=== PATIENT | female | born 1985 ===

== ENCOUNTER 2018-08-10 16:55 | Emergency (ER) | payer OTHER ==
[2018-08-10 17:16] VITALS: RESP 18; O2SAT 98
--- NOTE | 2018-08-10 17:47 | C.PDOC ---
History Of Present Illness 32 y/o female presents to the ED with complaints of cough, runny nose, sinus congestion, and chest congestion for 1 week. Cough is non-productive. Patient denies any fever, chills, nausea, or vomiting. Denies hx of asthma or smoking. She also complaints of some chest pain with coughing. No throat pain. Time Seen by Provider: 08/10/18 17:16 Chief Complaint (Nursing): Cough, Cold, Congestion History Per: Patient History/Exam Limitations: no limitations Onset/Duration Of Symptoms: Days Current Symptoms Are (Timing): Still Present Past Medical History Reviewed: Historical Data, Nursing Documentation, Vital Signs Vital Signs: Last Vital Signs Temp 98.4 F 08/10/18 17:14 Pulse 86 08/10/18 17:14 Resp 18 08/10/18 17:14 BP 121/79 08/10/18 17:14 Pulse Ox 98 08/10/18 17:14 Surgical History: No Surg Hx Family History: States: No Known Family Hx - Social History Hx Tobacco Use: No Hx Alcohol Use: No Hx Substance Use: No - Immunization History Hx Tetanus Toxoid Vaccination: No Hx Influenza Vaccination: No Hx Pneumococcal Vaccination: No Review Of Systems Except As Marked, All Systems Reviewed And Found Negative. Constitutional: Negative for: Fever, Chills ENT: Positive for: Nose Discharge, Nose Congestion, Other (Chest congestion) Cardiovascular: Positive for: Chest Pain (when coughing) Respiratory: Positive for: Cough. Negative for: Shortness of Breath, Sputum, Wheezing Gastrointestinal: Negative for: Nausea, Vomiting Musculoskeletal: Negative for: Back Pain Skin: Negative for: Rash Neurological: Negative for: Weakness, Headache Physical Exam - Physical Exam Appears: Non-toxic, No Acute Distress Skin: Normal Color, Warm, Dry Head: Atraumatic, Normacephalic Eye(s): bilateral: Normal Inspection, PERRL, EOMI Nose: Normal, No Discharge Oral Mucosa: Moist Throat: Normal, No Erythema, No Exudate Neck: Normal ROM Chest: Symmetrical, No Deformity, No Tenderness Cardiovascular: Rhythm Regular, No Murmur Respiratory: Normal Breath Sounds, No Accessory Muscle Use, No Rales, No Rhonchi, No Wheezing, Other (NARD) Extremity: Bilateral: Atraumatic, Normal Color And Temperature, Normal ROM Pulses: Left Radial: Normal, Right Radial: Normal Neurological/Psych: Oriented x3, Normal Speech, Other (No focal deficits) ED Course And Treatment O2 Sat by Pulse Oximetry: 98 (RA) Pulse Ox Interpretation: Normal - Radiology CXR: Interpreted by Me CXR Interpretation: Yes: No Acute Disease Medical Decision Making Medical Decision Making: Impression: Cough, r/o PNA Plan: --Chest X-Ray --EKG Patient informed of results. Plan is to discharge patient home. Counseled regarding dx of viral illness. Advised symptomatic treatment and follow up with PMD. Disposition Counseled Patient/Family Regarding: Studies Performed, Diagnosis, Need For Followup, Rx Given - Disposition Referrals: [facility] [Outside] [facility] [Outside] Disposition: HOME/ ROUTINE Disposition Time: 17:46 Condition: GOOD Prescriptions: Acetaminophen [Tylenol Extra Strength] 2 tab PO Q6 #30 tablet Benzonatate [Tessalon Perles] 200 mg PO TID PRN #15 sgl PRN Reason: Cough Pseudoephedrine HCl [Sudafed 24 Hour] 240 mg PO DAILY PRN #1 unit PRN Reason: Sinus Symptoms Instructions: Upper Respiratory Infection (ED) Forms: Gen Discharge Inst South Korean, [facility] (Danish), Work Excuse Print Language: SAO TOMEAN - Clinical Impression Clinical Impression: Upper respiratory infection - Scribe Statement The provider has reviewed the documentation as recorded by the Benjamin Reynolds Provider Attestation: All medical record entries made by the Scribe were at my direction and personally dictated by me. I have reviewed the chart and agree that the record accurately reflects my personal performance of the history, physical exam, medical decision making, and the department course for this patient. I have also personally directed, reviewed, and agree with the discharge instructions and d isposition.
[2018-08-10 17:48] VITALS: BP 110/74; PULSE 78; TEMP 98.5
--- NOTE | 2018-08-10 17:48 | RAD ---
Date of service: 08/10/2018 HISTORY: COUGH COMPARISON: No prior. TECHNIQUE: Chest PA and lateral FINDINGS: LUNGS: No acute consolidation.. Small elliptical shaped nodular density left lateral lower lung field which overlies the left anterior 6 rib possibly representing vessel on end artifact however small calcified granuloma not excluded. PLEURA: No significant pleural effusion identified. No pneumothorax apparent. CARDIOVASCULAR: No aortic atherosclerotic calcification present. Normal cardiac size. No pulmonary vascular congestion. OSSEOUS STRUCTURES: No significant abnormalities. VISUALIZED UPPER ABDOMEN: Normal. OTHER FINDINGS: None. IMPRESSION: No acute consolidation.. Small elliptical shaped nodular density left lateral lower lung field which overlies the left anterior 6 rib possibly representing a small vessel on end artifact or small calcified granuloma.
--- NOTE | 2018-08-11 10:53 | CARD ---
APPROVED REPORT Date of service: 08/10/2018 EKG Measurement Heart [id number] <Conclusion> Normal sinus rhythm Normal ECG
== END 2018-08-10 18:08 | disposition home or self-care (01) ==
LOC: C.ER 16:55
DX: J06.9 Acute upper respiratory infection, unspecified (principal)

== ENCOUNTER 2018-09-23 21:06 | Emergency (ER) | payer OTHER ==
[2018-09-23 21:17] VITALS: TEMP 98.2
[2018-09-23] MEDS ORDERED: Tdap Vaccine 0.5 ml Vial (10-64 yrs) IM ONE ×3 (21:23→21:45)
--- NOTE | 2018-09-23 21:23 | C.PDOC ---
History Of Present Illness Patient is a 32 year old female who presents to the ED after sustaining a fall and hitting her head while ice skating. Patient presents with a hematoma to the forehead. Patient denies any LOC, dizziness, palpitations, visual changes, headache, CP, or SOB. - HPI Time Seen by Provider: 09/23/18 21:20 Chief Complaint (Nursing): Trauma History Per: Patient History/Exam Limitations: no limitations Onset/Duration Of Symptoms: Hrs Recent travel outside of the [place]: No Additional History Per: Patient - Fall Fall:Prior To Injury: Lost Balance Past Medical History Reviewed: Historical Data, Nursing Documentation, Vital Signs Vital Signs: Last Vital Signs Temp 98.2 F 09/23/18 21:13 Pulse 97 H 09/23/18 21:13 Resp 16 09/23/18 21:13 BP 117/77 09/23/18 21:13 Pulse Ox 98 09/23/18 21:13 - Medical History PMH: No Chronic Diseases Surgical History: No Surg Hx Family History: States: No Known Family Hx - Social History Hx Tobacco Use: No Hx Alcohol Use: No Hx Substance Use: No - Immunization History Hx Tetanus Toxoid Vaccination: No Hx Influenza Vaccination: No Hx Pneumococcal Vaccination: No Review Of Systems Eyes: Negative for: Vision Change Cardiovascular: Negative for: Chest Pain, Palpitations Respiratory: Negative for: Shortness of Breath Neurological: Negative for: Headache, Dizziness, Other (LOC) Physical Exam - Physical Exam Appears: Non-toxic, No Acute Distress Head: Normacephalic, Other (2cm hematoma to forehead ) Nose: Other (linear abrasion to bridge of nose ) Oral Mucosa: Moist Neck: Normal ROM, Supple Chest: Symmetrical, No Deformity Cardiovascular: Rhythm Regular, No Murmur Respiratory: Normal Breath Sounds, No Rales, No Rhonchi, No Wheezing Gastrointestinal/Abdominal: Soft, No Tenderness, No Guarding, No Rebound Back: No Vertebral Tenderness (cervical, thoracic, lumbar tenderness of step offs ) Extremity: Normal ROM Neurological/Psych: Oriented x3, Normal Speech, Normal Cognition ED Course And Treatment O2 Sat by Pulse Oximetry: 98 (on RA) Pulse Ox Interpretation: Normal - CT Scan/US CAT Head Other Rad Studies (CT/US): Read By Radiologist, Radiology Report Reviewed CT/US Interpretation: IMPRESSION: No acute intracranial abnormality. Large left forehead hematoma. CAT Maxillofacial Other Rad Studies (CT/US): Read By Radiologist, Radiology Report Reviewed CT/US Interpretation: IMPRESSION: Bilateral ethmoid sinusitis. Chronic right mastoiditis. Unremarkable maxillofacial CT otherwise. Medical Decision Making Medical Decision Making: Plan: CAT Head, CAT Maxillofacial ordered and reviewed. Tylenol 975mg PO and Tetanus 0.5ml Drip administered. ct neg for intracranial pathology. large hematoma. pt advised conservative managment ice, elevation, adviseclose outpt fu and returnp recautions Disposition - Disposition Disposition: HOME/ ROUTINE Disposition Time: 22:00 Condition: STABLE Additional Instructions: follow up with your doctor/clinic. return to any er with worsening. Instructions: Contusion (DC), Head Injury Observation (DC) Forms: [employer] (Azeri) - Clinical Impression Clinical Impression: Contusion, Head injury - Scribe Statement The provider has reviewed the documentation as recorded by the Scribbonnie Campbell All medical record entries made by the Scribe were at my direction and personally dictated by me. I have reviewed the chart and agree that the record accurately reflects my personal performance of the history, physical exam, medical decision making, and the department course for this patient. I have also personally directed, reviewed, and agree with the discharge instructions and disposition.
[2018-09-23 22:19] VITALS: BP 114/74; PULSE 71; RESP 18
[2018-09-23 22:28] VITALS: O2SAT 98
--- NOTE | 2018-09-24 07:16 | CT ---
Date of service: 09/23/2018 PROCEDURE: CT HEAD WITHOUT CONTRAST. HISTORY: TRAUMA COMPARISON: None available. TECHNIQUE: Axial computed tomography images were obtained through the head/brain without intravenous contrast. Radiation dose: Total exam DLP = 1020.26 mGy-cm. This CT exam was performed using one or more of the following dose reduction techniques: Automated exposure control, adjustment of the mA and/or kV according to patient size, and/or use of iterative reconstruction technique. FINDINGS: HEMORRHAGE: No intracranial hemorrhage. BRAIN: No mass effect or edema. No atrophy or chronic microvascular ischemic changes. VENTRICLES: Unremarkable. No hydrocephalus. CALVARIUM: Unremarkable. PARANASAL SINUSES: Mild mucosal thickening of the ethmoid air cells. MASTOID AIR CELLS: Unremarkable as visualized. No inflammatory changes. OTHER FINDINGS: Prominent soft tissue swelling and hematoma formation overlying the anterior midline and left frontal cranium. IMPRESSION: Prominent soft tissue swelling and hematoma formation overlying the anterior midline and left frontal cranium. No acute intracranial abnormality. Sinus mucosal disease. If symptoms persists, consider correlation with MRI. A preliminary report was generated at 9:52 p.m. on 09/23/[address] Placido Oconnor from [employer].
--- NOTE | 2018-09-24 07:36 | CT ---
CT maxillofacial HISTORY: Trauma. COMPARISON: None available. TECHNIQUE: Multiple contiguous axial images were performed through the face without the use of intravenous contrast. Subsequently, sagittal and coronal reformatted images were obtained. Findings: Prominent soft tissue swelling and hematoma formation overlying the left frontal cranium. Visualized orbits appear preserved. Bilateral parotids and submandibular glands appear preserved. Please see separate report for evaluation of the brain. Mild mucosal thickening of the ethmoid air cells. Mild mucosal thickening and sclerosis of the right mastoid air cells. Bilateral maxillary, sphenoid, and frontal sinuses appear preserved. Leftward nasal septal deviation. Impression: Prominent soft tissue swelling and hematoma formation overlying the left frontal cranium. Bilateral ethmoid sinusitis. Mild chronic right mastoiditis. A preliminary report was generated at 9:55 p.m. on 09/23/[address] Placido Oconnor from [employer].
== END 2018-09-23 22:19 | disposition home or self-care (01) ==
LOC: C.ER 21:06
DX: S00.83XA Contusion of other part of head, initial encounter (principal); W00.0XXA Fall on same level due to ice and snow, initial encounter; Y93.21 Activity, ice skating; Y92.838 Other recreation area as the place of occurrence of the external cause; Z23 Encounter for immunization

== ENCOUNTER 2018-12-13 16:33 | Emergency (ER) | payer OTHER ==
[2018-12-13 16:42] VITALS: O2SAT 100
[2018-12-13] MEDS ORDERED: Aluminum Hydroxide/Magnesium Hydroxide Susp (30 mL) PO STA (17:08)
[2018-12-13] MEDS ORDERED: Sodium Chloride 0.9% 1,000 ML IV ONE (17:08)
[2018-12-13] MEDS ORDERED: Aluminum Hydroxide/Magnesium Hydroxide Susp (30 mL) ONE (17:28)
[2018-12-13] MEDS ORDERED: Sodium Chloride 0.9% 1,000 ML ONE (17:28)
[2018-12-13 17:41] LABS: BASO % 0.3 % (0.0-2.0); EOS % 0.8 % (0.0-4.0); LYMPH # 1.4 K/uL (1.0-4.3); LYMPH % 25.1 % (20.0-40.0); MONO # 0.4 K/uL (0.0-0.8); MONO % 7.8 % (0.0-10.0); NEUT # 3.7 K/uL (1.8-7.0)
[2018-12-13 17:51] LABS: ALB/GLOB RATIO 1.5 (1.0-2.1); ALT/SGPT 15 U/L (9-52); AST/SGOT 18 U/L (14-36); BLOOD UREA NITROGEN 16 mg/dL (7-17); CALCIUM 8.8 mg/dl (8.6-10.4); GFR NON-AFRICAN AMERICAN > 60; HEMOGLOBIN 12.6 g/dL (11.0-16.0); LIPASE 64 U/L (23-300); MEAN CELL VOLUME 86.5 fL (81.0-99.0); MEAN CORPUSCULAR HEMOGLOBIN 28.9 pg (27.0-31.0); MEAN CORPUSCULAR HGB CONC 33.4 g/dL (33.0-37.0); MEAN PLATELET VOLUME 8.6 fL (7.2-11.7); RBC 4.37 Mil/uL (3.80-5.20); RED CELL DISTRIBUTION WIDTH 15.9 % (11.5-14.5)
[2018-12-13 17:52] LABS: SQUAMOUS EPITHIAL 3 /hpf (0-5); URINE BILIRUBIN NEGATIVE (NEGATIVE); URINE BLOOD 1+ (NEGATIVE); URINE CLARITY Hazy (Clear); URINE COLOR Yellow (YELLOW); URINE GLUCOSE (UA) NORMAL (Normal); URINE LEUKOCYTE ESTERASE NEG Leu/uL (Negative); URINE PROTEIN NEGATIVE (NEGATIVE)
[2018-12-13 17:55] LABS: HCG,QUALITATIVE URINE NEGATIVE (NEGATIVE)
[2018-12-13 17:58] LABS: WHITE BLOOD COUNT 5.6 K/uL (4.8-10.8)
--- NOTE | 2018-12-13 18:07 | C.PDOC ---
History Of Present Illness 33 y/o female,with no significant PMhx, presents to the ER complaining of RUQ abdominal pain. Patient states that the pain is constant and she rates the pain 6/10. Patient reports that the pain is worse with deep breathing and moveme nt.She states that she has decreased appetite. She notes that she did not take any medications for the pain.Denies having fever,chills,nausea, vomiting, back pain, and urinary symptoms. Time Seen by Provider: 12/13/18 16:51 Chief Complaint (Nursing): Abdominal Pain History Per: Patient History/Exam Limitations: no limitations Onset/Duration Of Symptoms: Days Current Symptoms Are (Timing): Still Present Severity: Moderate Past Medical History Reviewed: Historical Data, Nursing Documentation, Vital Signs Vital Signs: Last Vital Signs Temp 98.1 F 12/13/18 16:39 Pulse 79 12/13/18 16:39 Resp 18 12/13/18 16:39 BP 116/76 12/13/18 16:39 Pulse Ox 100 12/13/18 16:39 - Medical History PMH: No Chronic Diseases Surgical History: No Surg Hx Family History: States: No Known Family Hx - Social History Hx Tobacco Use: No Hx Alcohol Use: No Hx Substance Use: No - Immunization History Hx Tetanus Toxoid Vaccination: No Hx Influenza Vaccination: No Hx Pneumococcal Vaccination: No Review Of Systems Except As Marked, All Systems Reviewed And Found Negative. Constitutional: Negative for: Fever, Chills Genitourinary: Negative for: Dysuria, Frequency, Incontinence, Hematuria Musculoskeletal: Negative for: Back Pain Physical Exam - Physical Exam Appears: Non-toxic, No Acute Distress Skin: Normal Color, Warm, Dry Head: Atraumatic, Normacephalic Eye(s): bilateral: Normal Inspection Nose: Normal Oral Mucosa: Moist Throat: Normal, No Erythema, No Exudate Neck: Supple Chest: Symmetrical Cardiovascular: Rhythm Regular Respiratory: Normal Breath Sounds, No Rales, No Rhonchi, No Wheezing Gastrointestinal/Abdominal: Soft, Tenderness (mild tenderness at inferior ribs on right side mid axillary line), No Guarding, No Rebound Neurological/Psych: Oriented x3, Normal Speech ED Course And Treatment - Laboratory Results Result Diagrams: 12/13/18 17:28 12/13/18 17:28 Lab Results: Total Bilirubin 0.3 mg/dL (0.2-1.3) 12/13/18 17:28 AST 18 U/L (14-36) 12/13/18 17:28 ALT 15 U/L (9-52) 12/13/18 17:28 Alkaline Phosphatase 58 U/L (38-126) 12/13/18 17:28 Total Protein 6.6 g/dL (6.3-8.3) 12/13/18 17:28 Albumin 4.0 g/dL (3.5-5.0) 12/13/18 17:28 Globulin 2.6 gm/dL (2.2-3.9) 12/13/18 17:28 Albumin/Globulin Ratio 1.5 (1.0-2.1) 12/13/18 17:28 Lipase 64 U/L (23-300) 12/13/18 17:28 Urine Color Yellow (YELLOW) 12/13/18 17:28 Urine Clarity Hazy (Clear) 12/13/18 17:28 Urine pH 7.0 (5.0-8.0) 12/13/18 17:28 Ur Specific Mobile 1.021 (1.003-1.030) 12/13/18 17:28 Urine Protein Negative mg/dL (NEGATIVE) 12/13/18 17:28 Urine Glucose (UA) Normal mg/dL (Normal) 12/13/18 17:28 Urine Ketones Negative mg/dL (NEGATIVE) 12/13/18 17:28 Urine Blood 1+ (NEGATIVE) H 12/13/18 17:28 Urine Nitrate Negative (NEGATIVE) 12/13/18 17:28 Urine Bilirubin Negative (NEGATIVE) 12/13/18 17:28 Urine Urobilinogen 2.0 mg/dL (0.2-1.0) H 12/13/18 17:28 Ur Leukocyte Esterase Neg Leticia/uL (Negative) 12/13/18 17:28 Urine WBC (Auto) 3 /hpf (0-5) 12/13/18 17:28 Urine RBC (Auto) 4 /hpf (0-3) H 12/13/18 17:28 Ur Squamous Epith Cells 3 /hpf (0-5) 12/13/18 17:28 Urine HCG, Qual Negative (NEGATIVE) 12/13/18 17:28 Urine HCG, Qual Negative (NEGATIVE) 12/13/18 17:28 O2 Sat by Pulse Oximetry: 100 (RA) Pulse Ox Interpretation: Normal Medical Decision Making Medical Decision Making: Plan: --Labs --UA --Maalox PO --Pepcid IV --IV Fluids --Toradol IV --Tylenol PO Disposition Counseled Patient/Family Regarding: Studies Performed, Need For Followup, Rx Given - Disposition Disposition: HOME/ ROUTINE Disposition Time: 18:29 Condition: STABLE Prescriptions: Ibuprofen [Motrin] 600 mg PO TID #15 tab Instructions: Muscle and Bone Pain (DC) Forms: [employer] (Albanian), Gen Discharge Inst Albanian, Work Excuse - POA Present On Arrival: None - Clinical Impression Clinical Impression: Abdominal wall pain - Scribe Statement The provider has reviewed the documentation as recorded by the Bonibbonnie Rojas Provider Attestation: All medical record entries made by the Scribe were at my direction and personally dictated by me. I have reviewed the chart and agree that the record accurately reflects my personal performance of the history, physical exam, medical decision making, and the department course for this patient. I have also personally directed, reviewed, and agree with the discharge instructions and disposition.
[2018-12-13 18:45] VITALS: BP 106/72; PULSE 69; RESP 16; TEMP 98.3
== END 2018-12-13 18:54 | disposition home or self-care (01) ==
LOC: C.ER 16:33
DX: R10.11 Right upper quadrant pain (principal)
CPT/HCPCS: 80053; 81001; 81025; 83690; 84703; 85025; 96361; 96374; 96375; 99285; J1885; J7030

== ENCOUNTER 2018-12-14 15:22 | Emergency (ER) | payer OTHER ==
[2018-12-14 15:30] VITALS: O2SAT 100
[2018-12-14] MEDS ORDERED: Iohexol 240 (50 ml) PO ONE (16:14)
--- NOTE | 2018-12-14 16:20 | C.PDOC ---
History Of Present Illness 33 y/o female was seen in the ER yesterday and had complained of RUQ pain at that time. Labs and urine were done, which were normal. Patient was discharged with prescription for motrin. Today, patient states she feels better. She fo llowed up with the clinic today and was sent here for re-evaluation. Patient currently complains of mild discomfort in right mid abdomen but less than yesterday. Denies nausea, vomiting, diarrhea, fever, or urinary symptoms. Patient reports her appetite is normal and bowel movement normal. Time Seen by Provider: 12/14/18 15:41 Chief Complaint (Nursing): Abdominal Pain History Per: Patient History/Exam Limitations: no limitations Onset/Duration Of Symptoms: Days Current Symptoms Are (Timing): Still Present Past Medical History Reviewed: Historical Data, Nursing Documentation, Vital Signs Vital Signs: Last Vital Signs Temp 98 F 12/14/18 15:27 Pulse 71 12/14/18 15:27 Resp 20 12/14/18 15:27 BP 123/83 12/14/18 15:27 Pulse Ox 100 12/14/18 15:27 Family History: States: No Known Family Hx - Social History Hx Tobacco Use: No Hx Alcohol Use: No Hx Substance Use: No - Immunization History Hx Tetanus Toxoid Vaccination: No Hx Influenza Vaccination: No Hx Pneumococcal Vaccination: No Review Of Systems Constitutional: Negative for: Fever, Chills Cardiovascular: Negative for: Chest Pain Respiratory: Negative for: Shortness of Breath Gastrointestinal: Positive for: Abdominal Pain. Negative for: Nausea, Vomiting, Diarrhea Genitourinary: Negative for: Dysuria, Hematuria Neurological: Negative for: Headache Physical Exam - Physical Exam Appears: Non-toxic, No Acute Distress Skin: Warm, Dry Head: Atraumatic, Normacephalic Eye(s): bilateral: Normal Inspection Oral Mucosa: Moist Neck: Supple Cardiovascular: Rhythm Regular, No Murmur Respiratory: Normal Breath Sounds, No Rales, No Rhonchi, No Wheezing Gastrointestinal/Abdominal: Soft, Tenderness (mild tenderness in right mid abdomen), No Guarding, No Rebound Extremity: Bilateral: Atraumatic, Normal Color And Temperature, Normal ROM Neurological/Psych: Oriented x3, Normal Speech ED Course And Treatment - Laboratory Results Result Diagrams: 12/14/18 16:17 12/14/18 16:17 Lab Interpretation: Normal O2 Sat by Pulse Oximetry: 100 (RA) Pulse Ox Interpretation: Normal - CT Scan/US Abd/Pel CT Other Rad Studies (CT/US): Read By Radiologist, Radiology Report Reviewed CT/US Interpretation: FINDINGS: LOWER THORAX: No visible consolidation, pleural effusion, or pneumothorax. LIVER: Unremarkable. GALLBLADDER AND BILE DUCTS: Unremarkable. PANCREAS: Unremarkable. SPLEEN: Unremarkable. ADRENALS: Unremarkable. KIDNEYS AND URETERS: The kidneys enhance symmetrically. No hydronephrosis or obstructing renal calculus. 13 x 12 mm hypodensity in the right mid to upper pole; recommend correlation with renal ultrasound. BLADDER: The urinary bladder appears unremarkable. REPRODUCTIVE: Uterus is present. APPENDIX: The appendix appears within normal limits of caliber. No secondary signs of acute appendicitis. BOWEL: The stomach is nondistended. The bowel loops appear within normal limits of caliber without evidence of intestinal obstruction. PERITONEUM: No significant free fluid. No definite free air. LYMPH NODES: No bulky lymphadenopathy identified. VASCULATURE: No aortic aneurysm. No atherosclerotic calcification or mural plaque present. BONES: No acute osseous abnormality is detected. OTHER FINDINGS: None. IMPRESSION: 13 x 12 mm hypodensity in the right mid to upper pole; recommend correlation with renal ultrasound. Otherwise unremarkable study. Renal US Other Rad Studies (CT/US): Read By Radiologist, Radiology Report Reviewed CT/US Interpretation: CLINICAL HISTORY: Hypodensity in rt upper pole kidney. TECHNIQUE: Realtime sonographic images were obtained in multiple projections. COMMENTS: The right kidney measures 9.9 x 4.7 x 4.3 cm and the left kidney measures 10.9 x 5.3 x 5.1 cm. Both kidneys are free of hydronephrosis. There is no perinephric fluid. There is no renal calculus. Right renal mid-upper pole heterogeneous mass measures 1.8 x 1.6 x 2 cm. The aorta is unremarkable. The urinary bladder is distended. IMPRESSION: Right renal mid-upper pole heterogeneous mass. Please correlate with CT. Reevaluation Time: 21:36 Reassessment Condition: Improved (Patient remains comfortable.) Medical Decision Making Medical Decision Making: Plan: --Abd/Pel CT --Labs --UA --Omnipaque PO Disposition Counseled Patient/Family Regarding: Studies Performed, Diagnosis, Need For Followup - Disposition Referrals: [facility] [Outside] Disposition: HOME/ ROUTINE Disposition Time: 21:36 Condition: IMPROVED Additional Instructions: Follow up with the clinic tomorrow for further evaluation and work-up of right renal mass. Forms: [employer] (Honduran) - Clinical Impression Clinical Impression: Right renal mass - Scribe Statement The provider has reviewed the documentation as recorded by the Bonibe Monet Hannah Provider Attestation: All medical record entries made by the Bonibe were at my direction and personally dictated by me. I have reviewed the chart and agree that the record accurately reflects my personal performance of the history, physical exam, medical decision making, and the department course for this patient. I have also personally directed, reviewed, and agree with the discharge instructions and disposition.
[2018-12-14 16:23] LABS: SQUAMOUS EPITHIAL 1 /hpf (0-5); URINE BILIRUBIN NEGATIVE (NEGATIVE); URINE BLOOD NEGATIVE (NEGATIVE); URINE CLARITY Clear (Clear); URINE COLOR Straw (YELLOW); URINE GLUCOSE (UA) NORMAL (Normal); URINE LEUKOCYTE ESTERASE NEG Leu/uL (Negative); URINE PROTEIN NEGATIVE (NEGATIVE); URINE UROBILINOGEN NORMAL mg/dL (0.2-1.0)
[2018-12-14] MEDS ORDERED: Iohexol 240 (50 ml) ONE (16:24)
[2018-12-14 16:26] LABS: BASO % 0.3 % (0.0-2.0); EOS % 0.5 % (0.0-4.0); LYMPH # 1.3 K/uL (1.0-4.3); MEAN CELL VOLUME 85.5 fL (81.0-99.0); MEAN CORPUSCULAR HEMOGLOBIN 28.7 pg (27.0-31.0); MEAN CORPUSCULAR HGB CONC 33.6 g/dL (33.0-37.0); MEAN PLATELET VOLUME 8.5 fL (7.2-11.7); MONO # 0.3 K/uL (0.0-0.8); MONO % 6.4 % (0.0-10.0); NEUT # 3.5 K/uL (1.8-7.0); NEUT % 66.8 % (50.0-75.0); RBC 4.54 Mil/uL (3.80-5.20); RED CELL DISTRIBUTION WIDTH 15.7 % (11.5-14.5); WHITE BLOOD COUNT 5.2 K/uL (4.8-10.8)
[2018-12-14 16:34] LABS: ALB/GLOB RATIO 1.5 (1.0-2.1); ALBUMIN 4.4 g/dL (3.5-5.0); ALT/SGPT 24 U/L (9-52); AST/SGOT 23 U/L (14-36); BLOOD UREA NITROGEN 9 mg/dL (7-17); CALCIUM 9.2 mg/dl (8.6-10.4); GFR NON-AFRICAN AMERICAN > 60
[2018-12-14] MEDS ORDERED: Iodixanol 320 MG/ML 100 ML BOTTLE IV ONE (17:45)
[2018-12-14 18:44] VITALS: RESP 17
--- NOTE | 2018-12-14 18:49 | CT ---
PROCEDURE: CT Abdomen and Pelvis with oral and IV contrast. HISTORY: Rt sided abdominal pain COMPARISON: CT of the abdomen and pelvis with contrast performed 01/08/18 TECHNIQUE: Contiguous axial images of the abdomen and pelvis. Oral and IV contrast was administered. Coronal and Sagittal reformats generated and reviewed. Contrast dose: 100 mL Visipaque 320 IV Radiation dose: Total exam DLP = 466.0 mGy-cm. This CT exam was performed using one or more of the following dose reduction techniques: Automated exposure control, adjustment of the mA and/or kV according to patient size, and/or use of iterative reconstruction technique. FINDINGS: LOWER THORAX: No visible consolidation, pleural effusion, or pneumothorax. LIVER: Unremarkable. GALLBLADDER AND BILE DUCTS: Unremarkable. PANCREAS: Unremarkable. SPLEEN: Unremarkable. ADRENALS: Unremarkable. KIDNEYS AND URETERS: The kidneys enhance symmetrically. No hydronephrosis or obstructing renal calculus. 13 x 12 mm hypodensity in the right mid to upper pole; recommend correlation with renal ultrasound. BLADDER: The urinary bladder appears unremarkable. REPRODUCTIVE: Uterus is present. APPENDIX: The appendix appears within normal limits of caliber. No secondary signs of acute appendicitis. BOWEL: The stomach is nondistended. The bowel loops appear within normal limits of caliber without evidence of intestinal obstruction. PERITONEUM: No significant free fluid. No definite free air. LYMPH NODES: No bulky lymphadenopathy identified. VASCULATURE: No aortic aneurysm. No atherosclerotic calcification or mural plaque present. BONES: No acute osseous abnormality is detected. OTHER FINDINGS: None. IMPRESSION: 13 x 12 mm hypodensity in the right mid to upper pole; recommend correlation with renal ultrasound. Otherwise unremarkable study.
[2018-12-14 20:53] VITALS: BP 109/74; PULSE 73; TEMP 98.6
--- NOTE | 2018-12-15 12:21 | US ---
Date of service: 12/14/2018 PROCEDURE: Ultrasound of the Kidneys HISTORY: hypodensity in rt upper pole kidney COMPARISON: None available. TECHNIQUE: Sonogram of the kidneys. FINDINGS: RIGHT KIDNEY: Measures: 9.9 x 4.7 x 4.3 cm. No obstructing calculus or hydronephrosis identified. 1.8 x 1.6 x 2.0 cm mid to upper pole heterogeneous mass. LEFT KIDNEY: Measures: 10.9 x 5.3 x 5.1 cm. No obstructing calculus, hydronephrosis, or renal cyst identified. OTHER FINDINGS: None. IMPRESSION: Indeterminate 1.8 x 1.6 x 2.0 cm upper pole renal heterogeneous mass. Preliminary impression was provided by [employer].
== END 2018-12-14 21:45 | disposition home or self-care (01) ==
LOC: C.ER 15:22
DX: N28.89 Other specified disorders of kidney and ureter (principal)
CPT/HCPCS: 74177; 76770; 80053; 81001; 81025; 85025; 99285; Q9966; Q9967

== ENCOUNTER 2019-01-07 09:52 | Emergency (ER) | payer OTHER ==
[2019-01-07 10:02] VITALS: TEMP 98.3
--- NOTE | 2019-01-07 10:19 | C.PDOC ---
History Of Present Illness 33 year old female presents for evaluation of neck and RT shoulder pain rated 6/10 for 5 days. Pt reports prior DNJ where she was diagnosed with a throat infection and given antibiotics x15 days ago. She notes completing the full course of antibiotics but has since noticed neck and RT shoulder pain. Pt also reports prior visit to the clinic where she was diagnosed with thyroid disease but given no medication. Admits to taking ibuprofen for 4 days with no improvement. Denies TEJADA, dizziness, weakness, neck stiffness, CP, SOB, nausea, vomiting, recent strenuous workout or heavy lifting, sleeping on the area wrong, or any other associated symptoms. Time Seen by Provider: 01/07/19 10:03 Chief Complaint (Nursing): ENT Problem History Per: Patient History/Exam Limitations: no limitations Onset/Duration Of Symptoms: Days Pain Scale Rating Of: 8 (sharp.) Past Medical History Reviewed: Historical Data, Nursing Documentation, Vital Signs Vital Signs: Last Vital Signs Temp 98.3 F 01/07/19 09:58 Pulse 84 01/07/19 09:58 Resp 20 01/07/19 09:58 BP 131/78 01/07/19 09:58 Pulse Ox 98 01/07/19 09:58 Primary Care Provider: Clinic,Med Surg Family History: States: Unknown Family Hx - Social History Hx Tobacco Use: No Hx Alcohol Use: No Hx Substance Use: No - Immunization History Hx Tetanus Toxoid Vaccination: No Hx Influenza Vaccination: No Hx Pneumococcal Vaccination: No Review Of Systems Constitutional: Negative for: Other ((-) strenuous workout or heavy lifting, sleeping on the area wrong.) Cardiovascular: Negative for: Chest Pain Respiratory: Negative for: Shortness of Breath Gastrointestinal: Negative for: Nausea, Vomiting Musculoskeletal: Positive for: Neck Pain (RT), Shoulder Pain (RT) Neurological: Negative for: Headache, Dizziness Physical Exam - Physical Exam Appears: Non-toxic, No Acute Distress Skin: Normal Color, Warm, Dry, Other (Nape of neck and RT shoulder: no edema, ecchymosis, erythema) Head: Atraumatic, Normacephalic Eye(s): bilateral: Normal Inspection, PERRL Ear(s): Bilateral: Normal Nose: Normal, No Discharge Oral Mucosa: Moist Tongue: Normal Appearing Lips: Normal Appearing Throat: Normal, No Erythema, No Exudate Neck: Normal ROM, Trachea Midline, Supple Chest: Symmetrical Cardiovascular: Rhythm Regular Respiratory: Normal Breath Sounds, No Wheezing Extremity: Normal ROM, Tenderness (tenderness to the RT side of neck mainly at the nape of neck radiating down to the posterior and anterior shoulder; mainly muscular ) Neurological/Psych: Oriented x3, Normal Speech, Normal Cognition, Normal Motor, Normal Sensation Gait: Steady ED Course And Treatment O2 Sat by Pulse Oximetry: 98 (RA) Pulse Ox Interpretation: Normal Medical Decision Making Medical Decision Making: Impression: Muscle spasm Plan: -Naproxen and Flexeril PO given -Lidoderm patch applied On reassessment, patient notes improvement of pain and resting comfortably. She is stable for discharge Disposition Counseled Patient/Family Regarding: Diagnosis, Need For Followup, Rx Given - Disposition Referrals: [facility] [Outside] Disposition: HOME/ ROUTINE Disposition Time: 11:17 Condition: IMPROVED Additional Instructions: continue meds as prescribed rest and ice the area follow up with PMD regarding Thyroid Return to ED if symptoms worsen continuar los medicamentos segn lo prescrito descansar y hacer hielo en la chris seguimiento con PMD con respecto a la tiroides Regrese a la ED si los sntomas empeoran Prescriptions: Cyclobenzaprine [Flexeril] 5 mg PO TID PRN #15 tab PRN Reason: Muscle Spasm Lidocaine 5% [Lidoderm] 1 ea TD PRN PRN #30 patch PRN Reason: Pain, Moderate (4-7) Naproxen [Naprosyn] 500 mg PO BID #30 tablet Instructions: Muscle Spasms (DC) Forms: [employer] (Yakut) Print Language: POLISH - Clinical Impression Clinical Impression: Neck pain, Shoulder pain, right, Muscle spasm - PA / [employer] / Resident Statement MD/DO has reviewed & agrees with the documentation as recorded. - Scribe Statement The provider has reviewed the documentation as recorded by the Scribe (Raisa Ramon) All medical record entries made by the Scribe were at my direction and personally dictated by me. I have reviewed the chart and agree that the record accurately reflects my personal performance of the history, physical exam, medical decision making, and the department course for this patient. I have also personally directed, reviewed, and agree with the discharge instructions and disposition.
[2019-01-07] MEDS ORDERED: Naproxen 550 mg Tab PO STA (10:22)
[2019-01-07] MEDS ORDERED: Lidocaine 5% Patch TD STA (10:22)
[2019-01-07] MEDS ORDERED: Lidocaine 5% Patch TD ONE (10:35)
[2019-01-07] MEDS ORDERED: Naproxen 550 mg Tab PO ONE (10:35)
[2019-01-07 11:30] VITALS: BP 102/68; PULSE 70; RESP 16; O2SAT 98
== END 2019-01-07 11:29 | disposition home or self-care (01) ==
LOC: C.ER 09:52
DX: M54.2 Cervicalgia (principal); M25.511 Pain in right shoulder; M62.838 Other muscle spasm